=== PATIENT | male | born 1965 | race Caucasian/White ===

== ENCOUNTER 2018-01-18 14:16 | Emergency (ER) | payer BC, OTHER ==
[~2018-01-18] VITALS: Ht 182.9 cm; Wt 90.7 kg
[2018-01-18] MEDS ORDERED: NOHOMEMEDICATIONS (14:36)
[2018-01-18] MEDS ORDERED: VIAGRA25 MG PO (14:37)
[2018-01-18 14:38] LABS: ABSOLUTE NEUTROPHILS 5.6 thou/uL (1.4-8.2); EOSINOPHILS 0.9 % (0.0-3.0); MONOCYTES 5.8 % (1.0-8.0); RDW 12.5 % (10.5-14.5); WBC 10.3 thou/uL (4.0-11.0)
[2018-01-18 14:41] LABS: BASOPHILS 0.8 % (0.0-2.0); HEMATOCRIT 47.2 % (42.0-52.0); HEMOGLOBIN 16.7 gm/dL (14.0-18.0); LYMPHOCYTES 38.3 % (24.0-44.0); MCH 33.7 pg (26.0-34.0); MCHC 35.4 g/dL (28.0-37.0); MCV 95.2 fL (80.0-100.0); PLATELET COUNT 275 thou/uL (150-400); POLYS 54.2 % (36.0-66.0); RBC 4.96 mil/uL (4.50-6.00)
[2018-01-18 14:52] LABS: ANION GAP 12 mmol/L (7-16); BUN 20 mg/dL (7-18); CALCIUM 8.9 mg/dL (8.5-10.1); CHLORIDE 104 mmol/L (98-107); CO2 25 mmol/L (21-32); CREATININE 1.2 mg/dL (0.7-1.3); GLUCOSE 140 mg/dL (74-106); SODIUM 141 mmol/L (136-145)
[2018-01-18 14:54] LABS: APTT 23.4 Seconds (24.5-32.8); PROTIME 10.9 Seconds (9.3-11.4)
[2018-01-18 14:58] LABS: ALBUMIN 3.7 g/dL (3.4-5.0); POTASSIUM 2.9 mmol/L (3.5-5.1); SALICYLATE < 2.8 mg/dL (2.8-20.0); SGOT 67 U/L (15-37); SGPT 62 U/L (30-65); TOTAL BILIRUBIN 0.5 mg/dL (<0.1-1.0); TOTAL PROTEIN 7.3 g/dL (6.4-8.2)
== END 2018-01-18 21:17 | disposition short-term general hospital (02) ==
LOC: ER 14:16
PROVIDERS: Emergency Medicine
DX: S32.018A Other fracture of first lumbar vertebra, initial encounter for closed fracture (principal); S32.028A Other fracture of second lumbar vertebra, initial encounter for closed fracture; S22.41XA Multiple fractures of ribs, right side, initial encounter for closed fracture; J98.11 Atelectasis; J18.8 Other pneumonia, unspecified organism; E87.6 Hypokalemia; J93.9 Pneumothorax, unspecified; Z88.1 Allergy status to other antibiotic agents; W11.XXXA Fall on and from ladder, initial encounter; Y92.89 Other specified places as the place of occurrence of the external cause; Y93.89 Activity, other specified; Y99.8 Other external cause status